=== PATIENT | female | born 1945 ===

== ENCOUNTER 2017-06-03 07:56 | Emergency (ER) | payer MEDICARE, BC, OTHER ==
[2017-06-03] MEDS ORDERED: ASPIRIN EC 81 MG PO ONE (08:05)
[2017-06-03] MEDS ORDERED: ASPIRIN 81 MG CHEWABLE CTB ONE (08:05)
[2017-06-03 08:19] LABS: BASOPHILS % (AUTO) 0 % (0-3); EOSINOPHILS % (AUTO) 1 % (0-9); HEMATOCRIT 45 % (35-47); MEAN CORPUSCULAR HGB CONC 33.4 gm/dl (32.0-36.0); MEAN CORPUSCULAR VOLUME 82 fL (81-99); NEUTROPHILS % (AUTO) 86.8 % (37-80)
[2017-06-03 08:26] VITALS: TEMP 97.8
[2017-06-03 08:38] LABS: ALBUMIN 3.7 gm/dl (3.4-5.0); CALCIUM 9.5 mg/dl (8.5-10.1); POTASSIUM 3.8 mMol/L (3.5-5.1)
[2017-06-03 09:20] VITALS: O2SAT 94
[2017-06-03 09:21] VITALS: BP 128/80; PULSE 77; RESP 18
== END 2017-06-03 09:09 | disposition home or self-care (01) | DRG 313 ==
LOC: ED 07:56
DX: R07.89 Other chest pain (principal); R51 Headache; Z56.3 Stressful work schedule
CPT/HCPCS: 71010; 80053; 83880; 84484; 85025; 93005; 99284

== ENCOUNTER 2018-08-05 14:35 | Outpatient (CLI) | payer MEDICARE, BC, OTHER | END 2018-08-05 14:36 | disposition home or self-care (01) | DRG 556 | LOC: CONVCARE 14:35 | PROVIDERS: ATTEND Orthopaedic Surgery | DX: M25.511 Pain in right shoulder (principal) | CPT/HCPCS: 73030 ==